=== PATIENT | female | born 1955 | race Caucasian/White ===

== ENCOUNTER 2016-06-20 10:16 | Inpatient (IN) | payer BC ==
[~2016-06-20] VITALS: Ht 170.2 cm; Wt 124.7 kg
[2016-06-20 10:59] LABS: HEMOGLOBIN 18.3 gm/dl (12.3-15.3); RED BLOOD COUNT 6.19 M/UL (4.00-5.10); WHITE BLOOD COUNT 11.9 K/UL (4.5-11.0)
[2016-06-20 11:27] LABS: BUN/CREATININE RATIO 13 (0-10)
[2016-06-20] MEDS ORDERED: ZOCOR10 MG PO (17:11)
[2016-06-20] MEDS ORDERED: SYNTHROID25 MCG PO (17:11)
[2016-06-20] MEDS ORDERED: VENTOLIN HFA 66.7 GM INH (17:15)
[2016-06-21 03:56] LABS: WHITE BLOOD COUNT 9.6 K/UL (4.5-11.0)
[2016-06-21 04:02] LABS: RED BLOOD COUNT 5.46 M/UL (4.00-5.10)
[2016-06-21 04:03] LABS: HEMOGLOBIN 16.1 gm/dl (12.3-15.3)
[2016-06-21 04:12] LABS: BUN/CREATININE RATIO 20 (0-10)
[2016-06-22 05:27] LABS: BUN/CREATININE RATIO 29 (0-10)
[2016-06-23 08:07] LABS: BUN/CREATININE RATIO 40 (0-10)
[2016-06-25 04:23] LABS: HEMOGLOBIN 16.4 gm/dl (12.3-15.3); RED BLOOD COUNT 5.65 M/UL (4.00-5.10); WHITE BLOOD COUNT 9.6 K/UL (4.5-11.0)
[2016-06-25 04:46] LABS: BUN/CREATININE RATIO 38 (0-10)
[2016-06-26 04:19] LABS: BUN/CREATININE RATIO 34 (0-10)
[2016-06-27] MEDS ORDERED: ZESTRIL/PRINIVI10 MG PO (10:59)
[2016-06-27] MEDS ORDERED: MEDROL DOSEPAK 24 MG PO (11:00)
[2016-06-27] MEDS ORDERED: SPIRIVA18 MCG INH (11:01)
[2016-06-27] MEDS ORDERED: IPRAT-ALBUT 0.5-3 ML INH (11:17)
[2016-06-27] MEDS ORDERED: SYMBICORT 16010.2 GM INH (11:43)
== END 2016-06-27 12:54 | disposition home or self-care (01) | DRG 208 ==
LOC: ER1 10:16 → ZEROF 14:21 → CCU 14:21 → PROG CARE 06-25 06:00
PROVIDERS: Family Medicine; Internal Medicine; Specialist/Technologist Athletic Trainer; ADMIT Internal Medicine Infectious Disease
PROC: 5A1945Z Respiratory Ventilation, 24-96 Consecutive Hours (ICD-10-PCS; principal; 2016-06-20)
PROC: 0BH17EZ Insertion of Endotracheal Airway into Trachea, Via Natural or Artificial Opening (ICD-10-PCS; 2016-06-22)
DX: J96.21 Acute and chronic respiratory failure with hypoxia (principal); G93.40 Encephalopathy, unspecified; J44.1 Chronic obstructive pulmonary disease with (acute) exacerbation; E66.2 Morbid (severe) obesity with alveolar hypoventilation; Z68.41 Body mass index [BMI] 40.0-44.9, adult; G47.33 Obstructive sleep apnea (adult) (pediatric); E03.9 Hypothyroidism, unspecified; F17.210 Nicotine dependence, cigarettes, uncomplicated; Z98.51 Tubal ligation status; Z79.899 Other long term (current) drug therapy; Z82.49 Family history of ischemic heart disease and other diseases of the circulatory system; D75.1 Secondary polycythemia; E78.5 Hyperlipidemia, unspecified; D72.829 Elevated white blood cell count, unspecified; E11.649 Type 2 diabetes mellitus with hypoglycemia without coma; Z87.01 Personal history of pneumonia (recurrent); I11.0 Hypertensive heart disease with heart failure; I50.9 Heart failure, unspecified; Z86.73 Personal history of transient ischemic attack (TIA), and cerebral infarction without residual deficits; J96.22 Acute and chronic respiratory failure with hypercapnia
CPT/HCPCS: 31500; 36415; 36600; 51702; 71010; 71020; 80048; 80053; 80202; 82550; 82553; 82803; 83036; 83605; 83735; 83874; 83880; 84439; 84443; 84484; 85025; 85027; 87040; 87070; 87205; 93005; 94002; 94003; 94640; 94660; 94664; 96374; 97116; 97530; 99291; J0330; J1650; J1940; J2405; J2920; J2930; J3010; J3370; J7030; J7040; J7070; J7509; Q2039

== ENCOUNTER → 2016-06-29 | Outpatient (CLI) | payer BC ==
[~2016-06-29] MED LIST: ASPIRIN81 MG PO; IPRAT-ALBUT 0.5-3 ML INH; MEDROL DOSEPAK 24 MG PO; PROTONIX 40 MG40 M1 PO; SINGULAIR10 MG PO; SPIRIVA18 MCG INH; SYMBICORT 16010.2 GM INH; SYNTHROID25 MCG PO; VENTOLIN HFA 66.7 GM INH; ZESTRIL/PRINIVI10 MG PO; ZOCOR10 MG PO
== END ==
LOC: SLEEP 21:30
DX: G47.33 Obstructive sleep apnea (adult) (pediatric) (principal)
CPT/HCPCS: 95810

== ENCOUNTER → 2016-08-04 | Outpatient (CLI) | payer BC | LOC: HEART 5 14:15 | DX: J44.9 Chronic obstructive pulmonary disease, unspecified (principal); R09.02 Hypoxemia | CPT/HCPCS: 94060; 94729 ==

== ENCOUNTER → 2016-08-22 | Outpatient (CLI) | payer BC | LOC: RT 11:56 | DX: R09.02 Hypoxemia (principal) | CPT/HCPCS: 36600; 82803 ==

== ENCOUNTER 2016-08-28 00:38 | Observation (INO) | payer BC ==
[~2016-08-28] VITALS: Ht 165.1 cm; Wt 120.2 kg
[~2016-08-28 00:38] MED LIST changes: -ASPIRIN81 MG PO; -PROTONIX 40 MG40 M1 PO; -SINGULAIR10 MG PO
[2016-08-28 01:28] LABS: HEMOGLOBIN 15.2 gm/dl (12.3-15.3); RED BLOOD COUNT 5.23 M/UL (4.00-5.10); WHITE BLOOD COUNT 11.1 K/UL (4.5-11.0)
[2016-08-28 01:48] LABS: BUN/CREATININE RATIO 25 (0-10)
[2016-08-28] MEDS ORDERED: SINGULAIR10 MG PO (05:06)
[2016-08-28] MEDS ORDERED: ASPIRIN81 MG PO (15:32)
[2016-08-28] MEDS ORDERED: PROTONIX 40 MG40 M1 PO (15:35)
== END 2016-08-28 16:40 | disposition home or self-care (01) ==
LOC: ER1 00:38 → PROG CARE 02:20 → ZEROF 02:20 → PROG CARE 04:00
PROVIDERS: Emergency Medicine; ADMIT Internal Medicine
DX: R07.9 Chest pain, unspecified (principal); J44.9 Chronic obstructive pulmonary disease, unspecified; I10 Essential (primary) hypertension; E78.5 Hyperlipidemia, unspecified; E03.9 Hypothyroidism, unspecified; E66.9 Obesity, unspecified; Z99.81 Dependence on supplemental oxygen; Z87.09 Personal history of other diseases of the respiratory system; Z98.51 Tubal ligation status; Z88.1 Allergy status to other antibiotic agents; Z88.8 Allergy status to other drugs, medicaments and biological substances; Z87.891 Personal history of nicotine dependence
CPT/HCPCS: ECHO; 36415; 71010; 78452; 80053; 80061; 82550; 82553; 83036; 83690; 83874; 84443; 84484; 85025; 93005; 93017; 93306; 99285; A9502; G0378; J2785; Q0163